=== PATIENT | male | born 2000 | race Caucasian/White ===

== ENCOUNTER 2019-02-23 11:48 | Emergency (ER) | payer SELFPAY ==
[2019-02-23] MEDS ORDERED: Adacel (T-DAP) 0.5 ML SYRINGE ONE (12:11)
[2019-02-23] MEDS ORDERED: Cephalexin 500 MG CAP ONE (12:11)
[2019-02-23] MEDS ORDERED: Dexamethasone 4 MG TAB ONE (12:11)
== END 2019-02-23 13:06 | disposition home or self-care (01) ==
LOC: MADERS 11:48
DX: L23.7 Allergic contact dermatitis due to plants, except food (principal); L03.311 Cellulitis of abdominal wall; L03.313 Cellulitis of chest wall; L03.221 Cellulitis of neck; L03.114 Cellulitis of left upper limb; L03.113 Cellulitis of right upper limb; Z23 Encounter for immunization
CPT/HCPCS: 90471; 90715; J8540

== ENCOUNTER 2020-04-15 17:57 | Emergency (ER) | payer SELFPAY | END 2020-04-15 18:51 | disposition home or self-care (01) | LOC: MADERS 17:57 | DX: L25.9 Unspecified contact dermatitis, unspecified cause (principal); F17.210 Nicotine dependence, cigarettes, uncomplicated | CPT/HCPCS: 99282 ==